=== PATIENT | female | born 1940 | race Caucasian/White ===

== ENCOUNTER 2024-04-16 12:52 | Outpatient (REF) | payer MEDICARE, SELFPAY ==
--- NOTE | 2024-04-16 12:58 | EEG_ITS ---
FINDINGS: Waking background activity consists of a moderate voltage 7 Hz diffuse theta intermixed with muscle artifacts anteriorly. Photic stimulation is without activation. Hyperventilation was omitted. IMPRESSION: This is an abnormal EEG due to mild diffuse background slowing consistent with a diffuse encephalopathic process. No paroxysmal features are identified. MD SIN Garsia/ANNABELLE / [id number]
== END 2024-04-16 12:53 | disposition home or self-care (01) ==
LOC: HO.NEURO 12:52
PROVIDERS: PCP Internal Medicine; Visit Provider Psychiatry & Neurology Neurology
DX: R42 Dizziness and giddiness (principal)
CPT/HCPCS: 95816

== ENCOUNTER 2024-08-18 14:23 | Outpatient (REF) | payer MEDICARE, SELFPAY ==
--- NOTE | ~2024-08-18 | XR_ITS ---
EXAMINATION: XR KNEE, LEFT CLINICAL INFORMATION: M25.562 ACUTE LEFT KNEE PAIN. COMPARISON: None available. TECHNIQUE: Three views of the left knee. FINDINGS: Normal bony mineralization. No definite fracture, dislocation, or suspicious bone lesion. Normal alignment. Moderate medial compartment, and mild lateral compartment joint space narrowing with marginal small osteophytes. Mild spurring of the tibial spines. Mild narrowing of the patellofemoral joint with small marginal osteophytic spurs. There appears to be a suprapatellar joint effusion, moderate in size. Soft tissues otherwise demonstrate mild vascular calcification. XR/XR knee LT 3V IMPRESSION: 1. No acute bony abnormalities. 2. Joint effusion present. 3. 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 Electronically signed by: Chang Quinteros MD 10/27/2024 10:01 AM [facility]
== END 2024-08-18 14:24 | disposition home or self-care (01) ==
LOC: HO.HMGCX 14:23
PROVIDERS: PCP Internal Medicine; Visit Provider Internal Medicine
DX: M25.562 Pain in left knee (principal)
CPT/HCPCS: 73562

== ENCOUNTER → 2024-08-18 14:32 | Outpatient (BNV) | payer MEDICARE, SELFPAY | PROVIDERS: PCP Internal Medicine; Visit Provider Radiology Diagnostic Radiology | DX: M17.12 Unilateral primary osteoarthritis, left knee (principal); M25.462 Effusion, left knee | CPT/HCPCS: 73562 ==

== ENCOUNTER 2024-09-30 15:00 | Outpatient (REF) | payer MEDICARE, SELFPAY ==
[2024-09-30 15:22] LABS: MANUAL DIFF FLAG NO
[2024-09-30 15:45] LABS: Basophils Percent Auto 0.6 % (0-2); Eosinophils Absolute Auto 0.1 X10*3/uL (0.0-0.4); Eosinophils Percent Auto 1.8 % (0-4); Hematocrit 38.7 % (37.0-47.0); Hemoglobin 12.1 g/dl (12.0-16.0); Imm Gran Abs Auto 0.02 X10*3/uL (0.00-0.03); Imm Gran Pct Auto 0.3 % (0.0-0.4); Lymphocytes Absolute Auto 2.1 X10*3/uL (1.2-4.9); Lymphocytes Percent Auto 31.7 % (20-40); Mean Corpuscular HGB Conc 31.3 g/dl (31.0-35.0); Mean Corpuscular Hemoglobin 25.9 pg (27.0-33.0); Mean Corpuscular Volume 82.7 fL (80.0-98.0); Mean Platelet Volume 10.1 fL (9.4-12.3); Monocytes Absolute Auto 0.7 X10*3/uL (0.1-1.2); Monocytes Percent Auto 10.2 % (2-11); Neutrophils Absolute Auto 3.7 x10*3/uL (2.0-8.3); Neutrophils Percent Auto 55.4 % (45-73); Platelet Count 303 X10*3/uL (160-400); Red Blood Count 4.68 X10*6/uL (4.20-5.50); White Blood Count 6.7 X10*3/uL (4.8-10.8)
[2024-09-30 16:28] LABS: Anion Gap 11 (12-20); Blood Urea Nitrogen 11 mg/dL (9-16); Calcium 9.6 mg/dL (8.4-10.2); Carbon Dioxide 25 mmol/L (22-29); Chloride 106 mmol/L (96-108); Estimated Glomerular Filt Rate 53; Glucose Random 94 mg/dL (60-115); Sodium 138 mmol/L (135-145)
[2024-09-30 16:44] LABS: Thyroid Stimulating Hormone 2.98 uIU/mL (0.32-4.0)
[2024-09-30 16:47] LABS: Vitamin B12 < 148 pg/mL (200-900)
== END 2024-09-30 15:01 | disposition home or self-care (01) ==
LOC: HO.LAB 15:00
PROVIDERS: Visit Provider Registered Nurse
DX: G31.84 Mild cognitive impairment of uncertain or unknown etiology (principal)
CPT/HCPCS: 36415; 80048; 82607; 84443; 85025

== ENCOUNTER 2025-02-19 08:49 | Outpatient (REF) | payer MEDICARE, SELFPAY ==
--- NOTE | ~2025-02-19 | MR_ITS ---
EXAMINATION: MR BRAIN WITHOUT CONTRAST CLINICAL INFORMATION: Parkinson's disease. COMPARISON: None available. TECHNIQUE: MRI of the brain was obtained using routine sequences without contrast. Examination performed on a Siemens 1.5 Avril high-field scanner. FINDINGS: Examination mildly limited by patient motion artifact, as well as susceptibility artifact from dentures. There is no diffusion restriction. There is no intracranial hemorrhage, acute infarction, mass effect, or edema. Ventricles are dilated mildly out of proportion to sulcal and cisternal prominence, findings most likely representing central volume loss. No definite hydrocephalus. No shift of midline. No abnormal hemosiderin deposition is identified, although the gradient sequences are limited by susceptibility artifact. There are numerous scattered punctate and minimally confluent foci of white matter T2 hyperintensity in the periventricular, subcortical, and hemispheric deep white matter. These are nonspecific but most likely represent mild changes of small vessel ischemia. Midline structures appear normally formed. Partial empty sella noted. Posterior fossa structures appear normal. Cerebellar tonsils are appropriately located. Major flow voids are preserved within the skull base. The globes and orbital contents demonstrate bilateral lens replacements. Paranasal sinuses are clear bilaterally. The mastoids and tympanic cavities are normally aerated. Extracranial soft tissues demonstrate no abnormalities. No suspicious bone marrow changes are evident. Atlantoaxial joint is normal. MR/MR head/brain wo con IMPRESSION: 1. Mildly limited examination as detailed. 2. No evidence of intracranial hemorrhage, acute infarction, mass effect, or edema. 3. Ventricles mildly dilated out of proportion to sulcal and cisternal prominence, findings most likely representing central volume loss. 4. Mild changes of small vessel ischemia. Electronically signed by: Chang Quinteros MD 02/19/2025 03:35 PM EDT
--- NOTE | ~2025-02-19 | XR_ITS ---
EXAMINATION: XR SCREENING FILM FOR MR HISTORY: PRE MRI R/O IMPLANT S/P UNKNOWN SURGERY COMPARISON: There are no prior studies for comparison. FINDINGS: Three views of the orbits are submitted. No radiopaque foreign body is identified. XR/XR pre mri screening IMPRESSION: No radiopaque foreign body is identified. Electronically signed by: Cody Solorzano MD 02/19/2025 10:34 AM EDT
--- OUTSIDE RECORDS SUMMARY | 2025-02-19 09:45 | XMS_ITS ---
Author Name [facility] Organization Unknown History of Medication Use Medication Directions Dispensed Refills Start Date End Date [facility] lisinopril 10 mg tablet TAKE 1 TABLET BY ORAL ROUTE EVERY DAY active Problems Problem Status Onset Date Problem Type Date of Resoluti on Source Arthritis of left knee active 2023-06-20 ProblemAct ENS_AONECT Encounters Encounter Type Encounter Reason Primary Diagnosis Location Date Ambulatory [facility] 09/11/2023 Ambulatory [facility] 08/07/2023 Ambulatory [facility] 07/03/2023 Ambulatory [facility] 07/03/2023 Ambulatory [facility] 06/20/2023 Ambulatory [facility] 06/20/2023 Ambulatory [facility] 06/20/2023 Ambulatory [facility] 06/19/2023 Ambulatory [facility] 06/06/2023 Ambulatory [facility] 06/06/2023 Ambulatory [facility] 05/18/2023
--- OUTSIDE RECORDS SUMMARY | 2025-02-19 09:45 | XMS_ITS | Encounter Summary ---
Author Organization [facility] Address [id number] [place] [phone] Care Team Providers Care Shirt Folder Name Role Phone Les Mariee MD Primary Care Provider [phone] Reason for Visit * Reason Onset Date Comments Forms/questionnaires 01/16/2025 For MRI Encounter Details Date Type Department Care Team (Late st Contact Info) Description 01/16/2025 Telephone [facility] [address] [facility] [address] [place] [id number] Jf Gonzales MD [address] [place] [address] Forms/questionnaires (For MRI ) Social History Tobacco Use Types Packs/Day Years Used Date Smoking Tobacco: Never Smokeless Tobacco: Never Alcohol Use Standard Drinks/Week Comments Never 0 (1 standard drink = 0.6 oz pur e alcohol) Comments Unknown Sex and Gender Information Value Date Recorded Sex Assigned at Not on file Legal Sex Female 9:36 PM EST Gender Identity Not on file Sexual Orientation Not on file documented as of this encounter Progress Notes * Miryam Redman MA - 01/30/2025 9:53 AM EST Thank you so much. noted * Tereza Dudley MA - 01/30/2025 7:22 AM EST All set. Faxed to [facility] MRI and confirmation received. * Miryam Redman MA - 01/20/2025 11:03 AM EST Called and let Elizabet know that Dr. Gonzales has the form and it will be filled out and sent once hecompletes it and gives it to me. Said she will let the patient son know as he is calling to schedule her MRI. * Jessy Baca - 01/20/2025 10:37 AM EST Elizabet called back, she would like to se if this has paul completed. If so please fax to [phone], she can be reached at [phone]. * Miryam Redman MA - 01/16/2025 2:45 PM EST Called confirmed fax was not received and to refax, which Elizabet did and the form was given to Dr. Gonzales. * Jessy Baca - 01/16/2025 2:11 PM EST Elizabet from [facility] called. They are in the process of scheduling the patient for anMRI and they faxed over a form to be completed by cardiology. She sent it to fax# [phone]. Shewould like to confirm that it was received. Please call her back at [phone]. documented in this encounter Plan of Treatment Upcoming Encounters Date Type Department Care Team (Late st Contact Info) Description 03/16/2025 11:00 AM EDT Ancillary Procedure [facility] [address] [place] [address] documented as of this encounter Visit Diagnoses Not on filedocumented in this encounter Care Teams Shirt Folder Relationship Specialty Start Date End Date Les Mariee MD PCP - General 07/02/18 documented as of this encounter
--- OUTSIDE RECORDS SUMMARY | 2025-02-19 09:45 | XMS_ITS | Clinical Summary ---
Author Organization [facility] Address [address] [place] [address] Phone Care Team Providers Care Netting Weaver Name Role Phone Lola Ma MD Primary Care Provider [phone] Allergies Active Allergy Reactions Criticality Noted Date Comments Iodinated Contrast Media 05/05/2022 Yellow Dye 03/09/2021 Medications diphenhydrAMINE (BENADRYL) 25 mg tablet Take 1 tablet (25 mg total) by mouth every 8 (eight) hours if needed. Active lisinopriL (PRINIVIL,ZESTRI L) 10 mg tablet Take 10 mg by mouth daily. Active pravastatin (PRAVACHOL) 40 mg tablet Take 40 mg by mouth daily. Active Active Problems Problem Noted Date Diagnosed Date Memory loss 06/24/2024 Abnormal electrocardiogram 05/11/2023 Atypical chest pain 05/05/2022 Essential hypertension 03/09/2021 Presence of permanent cardiac pacemaker 03/09/20 Sick sinus syndrome 03/09/2021 Encounters Date Type Department Care Team Description 01/16/2025 Telephone [facility] [address] [facility] [address] [place] [phone] Jf Gonzales MD Forms/questionnaires (For MRI ) 01/09/2025 Telephone [facility] [address] [facility] [address] [place] [address] Lola Ma MD Medical Records 01/09/2025 [address] [facility] [address] [place] [phone] Lola Ma MD Medical Records 01/07/2025 Telephone [facility] [address] [facility] [address] [place] [address] Vicente Higginbotham RN 12/16/2024 9:25 PM EST Ancillary Procedure [facility] [address] [facility] [address] [place] [address] from Last 3 Months Social History Tobacco Use Types Packs/Day Years Used Date Smoking Tobacco: Never Smokeless Tobacco: Never Alcohol Use Standard Drinks/Week Comments Never 0 (1 standard drink = 0.6 oz pur e alcohol) Comments Unknown Sex and Gender Information Value Date Recorded Sex Assigned at Not on file Legal Sex Female 9:36 PM EST Gender Identity Not on file Sexual Orientation Not on file Obstetrics History Last Filed Vital Signs Vital Sign Reading Time Taken Comments Blood Pressure 140/60 06/24/2024 11:09 AM EDT Si tting L Arm Pulse 79 06/24/2024 11:09 AM EDT Temperature - - Respiratory Rate - - Oxygen Saturation - - Inhaled Oxygen Concentration - - Weight 62.1 kg (137 lb) 06/24/2024 11:09 AM EDT Height 162.6 cm (5' 4 ) 06/24/2024 11:09 AM EDT Body Mass Index 23.52 06/24/2024 11:09 AM EDT Plan of Treatment Upcoming Encounters Date Type Department Care Team (Late st Contact Info) Description 03/16/2025 11:00 AM EDT Ancillary Procedure [facility] [address] [facility] [address] [place] [address] Health Maintenance Due Date Last Done Comments DTaP,Tdap,and Td Vaccines (1 - Tdap) 02/25/1960 Zoster Vaccines (1 of 2) 1991 RSV Immunization Patients 60 + Years Old (1 - 1-dose 75+ series) 02/25/2016 Pneumococcal Vaccine: 50+ Years (2 of 2 - PPSV23) 10/19/2021 10/19/2020 Cholesterol Screening (Lipid Panel) 11/04/2022 Depression Screening 11/04/2022 Falls Risk Assessment 11/04/2022 Medicare Annual Wellness Visit 11/04/2022 Social Influencers of Health Screening 11/04/2022 Hypertension/CHF/CAD Annual BMP Blood Test 11/05/2022 COVID-19 Vaccine (2023-2 5 season) 2024 09/12/2021, 01/24/2021, 01/03/2021 Osteoporosis Screening (Bone Density Screening) 07/25/2029 07/25/2019 Influenza Vaccine Completed 11/03/2024, 08/25/2023 HIB Vaccines Aged Out No longer eligi ble based on patient's age to complete this topic HPV Vaccines Aged Out No longer eligi ble based on patient's age to complete this topic Hepatitis A Vaccines Aged Out No long er eligible based on patient's age to complete this topic Hepatitis B Vaccines Aged Out No long er eligible based on patient's age to complete this topic IPV Vaccines Aged Out No longer eligi ble based on patient's age to complete this topic MMR Vaccines Aged Out No longer eligi ble based on patient's age to complete this topic Meningococcal ACWY Vaccine Aged Out N o longer eligible based on patient's age to complete this topic Meningococcal B Vacine Aged Out No lo nger eligible based on patient's age to complete this topic RSV Immunization Patients Under 20 months Aged Out No longer eligible b ased on patient's age to complete this topic Varicella Vaccines Aged Out No longer eligible based on patient's age to complete this topic Medical Devices Implanted Type Area Hardware Engineer Device Identifier Shelf Expiration Date Model / Serial / Lot Nathalia Edora 8 Mandy [id number] Implanted:06/2019 (Quantity not on file) Cardiac Pacemaker [employer] EDORA 8 MANDY / [id number] / Procedures Procedure Name Priority Date/Time Associated Diagnosis Comments CARDIAC DEVICE CHECK- REMOTE- MURJ Routine 12/16/2024 9:22 PM EST RM DEXA AXIAL SKELETON Routine 07/25/2019 11:54 AM EDT Asymptomatic menopausal state from Last 3 Months or Most Recently Relevant to Health Maintenance Results * Cardiac device check - Remote- MURJ (12/16/2024 9:22 PM EST) Date Time Interrogation Session [id number] CV DEVICE CHECK Type Interrogation Session RemoteScheduled CV DEVICE CHECK Implantable Pulse Generator Hardware Engineer BIO CV DEVICE CHECK Implantable Pulse Generator Type IPG CV DEVICE CHECK Implantable Pulse Generator Model Edora 8 DR-T CV DEVICE CHECK Implantable Pulse Generator Serial Number [id number] CV DEVICE CHECK Implantable Pulse Generator Implant Date 20190131 CV DEVICE CHECK Battery Remaining Percentage 55.00 CV DEVICE CHECK Battery Status Middle of Service CV DEVICE CHECK Ivan Statistic RA Percent Paced 99.00 CV DEVICE CHECK Ivan Statistic RV Percent Paced 0.00 CV DEVICE CHECK Atrial Tachy Statistic AT/AF Sharon Percent 0.00 CV DEVICE CHECK Lead Channel Sensing Intrinsic Amplitude 1.000 CV DEVICE CHECK Lead Channel Impedance Value 546 CV DEVICE CHECK Lead Channel RA Pacing Threshold Date 2024-12-12 CV DEVICE CHECK Lead Channel Setting Pacing Amplitude 1.400 CV DEVICE CHECK Lead Channel Setting Pacing Pulse Width 0.4 CV DEVICE CHECK Lead Channel Sensing Intrinsic Amplitude 10.100 CV DEVICE CHECK Lead Channel Impedance Value 585 CV DEVICE CHECK Lead Channel Pacing Threshold Amplitude 0.800 CV DEVICE CHECK Lead Channel Pacing Threshold Pulse Width 0.4 CV DEVICE CHECK Lead Channel RV Pacing Threshold Date 2024-12-12 CV DEVICE CHECK Lead Channel Setting Pacing Amplitude 1.300 CV DEVICE CHECK Lead Channel Setting Pacing Pulse Width 0.4 CV DEVICE CHECK Ivan Setting Mode (NBG Code) DDD-CLS CV DEVICE CHECK Ivan Setting Lower Rate Limit 60 CV DEVICE CHECK Ivan Setting AT Mode Switch Rate 160 CV DEVICE CHECK Ivan Setting Maximum Tracking Rate 130 CV DEVICE CHECK Ivan Setting Maximum Sensor Rate 120 CV DEVICE CHECK Ivan Setting PAV Delay 120 CV DEVICE CHECK Ivan Setting JOHNNIE Delay 100 CV DEVICE CHECK Date of Service 2024-12-22 CV DEVICE CHECK Anatomical Region Laterality Modality Device Interroga tion 12/11/2024 10:3 8 PM EST Impressions 12/16/2024 8:06 AM EST Normal Remote: No Events * Normal Device Function * Alerts or events: None * Battery: Battery is at 55%, * Sensing, impedance and thresholds reviewed * Programmed parameters reviewed * Presenting rhythm reviewed * Heart Rate Histograms reviewed * No significant changes noted Narrative Procedure Note Eleno Cordova MD - 12/16/2024 IMPRESSION: Normal Remote: No Events * Normal Device Function * Alerts or events: None * Battery: Battery is at 55%, * Sensing, impedance and thresholds reviewed * Programmed parameters reviewed * Presenting rhythm reviewed * Heart Rate Histograms reviewed * No significant changes noted us Eleno Cordova MD CV IMPLANTABLE CARDIAC DEV ICE PROCEDURES Final Result * [facility] DEXA AXIAL SKELETON (07/25/2019 11:54 AM EDT) Anatomical Region Laterality Modality Mammography 07/25/2019 10:1 1 AM EDT Narrative 07/25/2019 11:[address] [facility] Diagnostic Imaging Department [address] [place], [place] [id number] Patient: ??SHERIE GONZALEZ ?/Age/Sex: 1940 - F Unit#: ??[id number] ? Location/Status: ??SPDIMAM/REG CLI ? Mnemonic/Ordering Site: ??MAMDEXAAX/SPMAM Ordering Physician: ??LOLA MA MD [facility] Dexa Axial Skeleton - 07/25/191137 HISTORY: ??The patient is a 79-year-old postmenopausal female with clinical concern for metabolic bone disease. FINDINGS: ??Dual energy x-ray absorptiometry of the lumbar spine and femurs is performed. The mean bone mineral density at L1-L4 is 1.377 gm/cm2 which is 117% of that of young normals and 144% of that of age matched controls. This yields a T-score of 1.6 and a Z-score of 3.5 and there is therefore no evidence of osteoporosis or osteopenia here. The mean bone mineral density of the femurs bilaterally is 1.044 gm/cm2 which is 104% of that of young normals and 137% of that of age matched controls. ??This yields a T-score of 0.3 and a Z-score of 2.2 and there is therefore no evidence of osteoporosis or osteopenia here. IMPRESSION: 1. There is no evidence of osteoporosis or osteopenia. 2. FRAX analysis yields a 10-year probability of major osteoporotic fracture of 11.3% and a 10-year probability of hip fracture of 2.1%. Code 65765 Dictating Physician: ??PARTHA LOGAN MD Electronically Signed by: ??PARTHA LOGAN MD Dic Date/Time: ??07/25/19 1152 Sign date/Time: ??07/25/19 1154 Procedure Note Partha Logan - 11/15/2022 [facility] Diagnostic Imaging Department [address] [place] [address] Patient: JENNY GONZALEZRICIA George Beckham/Age/Sex: 1940 - 79 - F Unit#: [id number] Location/Status: [facility] Ordering Physician: LOLA MA MD Rm Dexa Axial Skeleton - 07/25/19 1130 HISTORY: The patient is a 79-year-old postmenopausal female withclinical concern for metabolic bone disease. FINDINGS: Dual energy x-ray absorptiometry of the lumbar spine and femursis performed. The mean bone mineral density at L1-L4 is 1.377 gm/cm2 which is117% of that of young normals and 144% of that of age matched controls. Thisyields a T-score of 1.6 and a Z-score of 3.5 and there is therefore no evidenceof osteoporosis or osteopenia here. The mean bone mineral density of the femurs bilaterally is 1.044 gm/lf7yjkub is 104% of that of young normals and 137% of that of age matched controls.This yields a T-score of 0.3 and a Z-score of 2.2 and there is therefore noevidence of osteoporosis or osteopenia here. IMPRESSION: 1. There is no evidence of osteoporosis or osteopenia. 2. FRAX analysis yields a 10-year probability of major osteoporoticfracture of 11.3% and a 10-year probability of hip fracture of 2.1%. Code 03025 Dictating Physician: PARTHA LOGAN MD Electronically Signed by: PARTHA LOGAN MD Dic Date/Time: 07/25/19 1152 Sign date/Time: 07/25/19 1154 Lola Ma MD IMG BI PROCEDURES Final Result from Last 3 Months or Most Recently Relevant to Health Maintenance Insurance [employer] Care Teams Netting Weaver Relationship Specialty Start Date End Date Lola Ma MD PCP - General 8/7/18
--- OUTSIDE RECORDS SUMMARY | 2025-02-19 09:45 | XMS_ITS | Data Portability ---
Author Organization [place] [facility] Jayde Murcia [place]ONE [place] Address [address] [facility] [address] [place] [address] Care Team Providers Care Dedenter Name Role Phone LOLA MA Referring Provider [phone] Assessment Encounter Date Assessment Date Assessment LastModified by Organization Details LastModified Time 06/20/2023 06/20/2023 Pleasant 83-year-old female however presents is a poor historian. With left knee pain currently she would like to hold off on intervention. She certainly can take uzlz-kyd-nsdivge pain medication for symptomatic relief or topicals. She is not interested in injections at this point. She states she will call if her symptoms worsen or if she changes her mind. I did review her radiographs in detail. Female grounding engineer present Agnes Davilaes (PAIGE). Indirect care and treatment in conjunction with Dr. De Los Santos Additional treatment plan discussed with the patient in detail included the following; - Provider focused nonsteroidal anti-inflammator y regimen (discussed were the pros, cons, benefits and risks as well as any black box warnings) in patients over 60 years old they should be very cautious in taking these medications due to potential decreased kidney function and or elevated blood pressure. - Analgesic pain medication for pain suppression (discussed were the pros, cons, benefits and risks as well as any black box warnings) - The use of topical pain relieving medication were discussed - The use of ice to decrease inflammation and pain - The use of assistive ambulatory devices for ambulation and fall prevention - Formal specific guided physical therapy program I reviewed my findings at length with the patient today. ? ? ?We discussed the nature and etiology of this problem along with current treatment options. We discussed the expected course and outcomes and what to expect. We also discussed risks and benefits. ? ? ? All of their questions were answered today, and there was exhibited understanding and comprehension of all that was discussed. Time Spent: 10 minutes were spent reviewing previous imaging and charting. ? ? ?10 minutes were spent obtaining patient history. ? ? ?5 minutes were spent on physical exam. ? ? ?5? ? ?minutes were spent explaining diagnosis and assessment. Today's documentation was made using voice recognition software. This note may contain grammatical errors secondary to the software. [email or web address] Not available 06/20/2023 10:44:18 Plan of Treatment Reminders Order Date Submit Date Provider Last Modified By Organization Details Last Modified Time Details Appointments None record ed. Lab None record ed. Referral None record ed. Procedures None record ed. Surgeries None record ed. Imaging None record ed. Medication Orders None record ed. Patient TargetsNo targets recorded. Patient InstructionsNo instructions recorded. Reason for Referral None Reported. Problems Name Problem SNOMED Code Status Onset Date Resolution Date Notes Provider Name and Address Organization Details Recorded Time Arthritis of left knee [id number] 04 Active 2022 TRAVIS RIGGS PA-C [address] [facility],[address], [place], [address] [facility] 10:44:23 Problem Notes None recorded. Procedures Surgical History Date Name Laterality Status Provider Name and Address Organization Details Recorded Time Pacemaker/D efibrillato r completed [facility] [place] [facility] 06/20/2023 12:15:30 Imaging Results None recorded. Procedure Notes None recorded. Medical Equipment None Reported. Allergies Allergen ID Allergen Name Allergen Category Reaction Reaction Severity Criticality Documentation Date Start Date Code Code System Note Provider Name and Address Organization Details Recorded Time 6537 yellow dye medicatio n Not available Not available Not available 06/20/2023 UNK Agnes [facility], [place] [facility] 12:08:31 Medications Name Sig Start Date Stop Date Status Note LastModified by Organization Details LastModified Time oxybutynin chloride ER 10 mg tablet,extend ed release 24 hr TAKE 1 TABLET BY MOUTH EVERY DAY 06/20 completed Not Available Not Available Not Available pravastatin 40 mg tablet TAKE 1 TABLET BY MOUTH EVERY DAY active Not Available Not Available No t Available lisinopril 10 mg tablet TAKE 1 TABLET BY ORAL ROUTE EVERY DAY active Not Available Not Available No t Available Vitals Date Recorded Body height Body mass index (BMI) Body weight Provider Name and Address Organization Details Last Updated DateTime 06/20/2023 162.56 cm 23.2 kg/m2 44292.[address] [place] [facility] 06/20/2023 12:08:54 Social History Question Answer Notes LastModified by Organizat ion Details LastModified Time Tobacco Smoking Status Never Smoker Agnes Emery null, [place] [facility] 06/20/2023 12:15:16 What Is Your Level Of Alcohol Consumption? None Information not available 06/20/2023 Do You Use Any Illicit Or Recreational Drugs? No [email or web address] Information not available 06/20/2023 Do You Or Have You Ever Used Any Other Forms Of Tobacco Or Nicotine? No Information not available 06/20/2023 Sex: Unknown Functional Status None recorded. Mental Status None recorded. Family History Relationship Description Onset Age of this Age Resolved Age Notes LastModified by Organization Details LastModified Time Father Family history of malignant neoplasm [email or web address] Not available 2022 12:15:01 Medical History Condition Response Heart Disease Y Hypertension Y Gynecological HistoryNo gynecological history recorded. Obstetrics History GPAL:G 0 P 0 0 0 0 Past Encounters Encounter ID Performer Location Encounter Start Date Encounter Closed Date Diagnosis/Indication Diagnosis SNOMED-CT Code Diagnosis ICD10 Code Diagnosis Note [id number] Robin De Los Santos MD [facility] [address] [address] 06/20/2023 10:06:35 06/20/2023 10:54:27 Arthritis of left knee [id number] M13.862 Health Concerns Section Related Observation LastModified by Organization Detai ls LastModified Time None Recorded Concern Status LastModified by Organization Details LastModified Time None Recorded Advance Directives Directive None Recorded Payers Encounter Date Sequence Insurance Name Policy Number Policy Wahl Covered Member ID Wahl Member ID Guarantor Name 06/20/2023 1 [facility] - MEDICARE PREFERRED (MEDICARE REPLACEMENT HMO) NYDIA Gonzalez [id number] Noemi Gonzalez Notes Date Note Type Note Provider Name and Address Organization Details Recorded Time 3 text/html Very pleasant 83-year-old female referred by her primary care Dr. Ma for ongoing left knee pain she describes this pain is intermittent in nature. She states she does not take xqba-azx-mgxjqdm pain medication. She does a lot of gardening which she is most symptomatic she describes her pain is medial in nature denies instability symptoms denies any injury or previous surgery here for evaluation. She had x-rays performed at [facility] which show degenerative joint disease of the left knee. She also had an ultrasound which did not reveal any blood clot [facility] [address] [place], [place] [id number] Patient: NOEMI GONZALEZ George Stephens./Age/Sex: 1940 83 - FUnit#: [id number] Location/Status: [facility] CLIAccount#: [id number] Mnemonic/[facility] Physician: LOLA MA MD CR Knee LT 4 or more View - 03/27/23 - 0680Exam: Left knee radiographs.Indication: Pain.Comparison: None.Protocol: AP, lateral, and oblique views.Findings:No fracture, dislocation, or intraosseous lesion. No effusion. Mild tomoderate medial and moderate patellofemoral joint space narrowing withoutcyst or spur formation nor subchondral sclerosis. Lateral knee joint spaceis normal. Surrounding soft tissues are normal. Bone mineralizationpattern is normal.Impression:1. No acute fracture.2. Medial and patellofemoral joint osteoarthritis.Dictating Physician: GERA MONTANA MDElectronically Signed by: GERA MONTANA Date/Time: 03/29/23902Sign date/Time: 03/29/23 09 [facility] [address] [place] [address] Patient: NOEMI GONZALEZ George /Age/Sex: 1940 - 83 - FUnit#: [id number] Location/Status: [facility]/REG CLIAccount#: [id number] Mnemonic/Ordering Site: [facility]PVENLT/SPUSOrdering Physician: LOLA MA MD US Duplex Venous Study LT - 03/27/23 - 1515History: Left lower extremity pain and swelling.Findings:Duplex and color Doppler imaging of the left lower extremity was performedfrom the inguinal ligament to the popliteal fossa. The common femoral,femoral and popliteal veins are patent and compress completely. Normalspontaneous and phasic venous flow is demonstrated with Doppler. There isnormal flow augmentation with calf compression.The deep calf veins, as visualized, are compressibleImpression: No evidence of deep vein thrombosis in the left femoral-popliteal venous segment.[id number] Physician: MARY JO KINGSTON MDElectronically Signed by: MARY JO KINGSTON MDDic Date/Time: 03/27/23 1527Sign date/Time: 03/27/23 1528 TRAVIS RIGGS PA-C [address] [place] [address], [address], [place] [facility] 06/20/2023 10:44:38 OBGyn Episode No OBEpisode recorded.
--- OUTSIDE RECORDS SUMMARY | 2025-02-19 09:45 | XMS_ITS | Encounter Summary ---
Author Organization [facility] Address [address] [place] [address] Care Team Providers Care Director Social Welfare Name Role Phone Les Mariee MD Primary Care Provider [phone] Reason for Visit * Reason Onset Date Comments Medical Records 01/09/2025 Encounter Details Date Type Department Care Team (Late st Contact Info) Description 01/09/2025 Telephone [facility] Cardiology [facility] [address] [place] [address] Les Mariee MD [address] [place] [address] Medical Records Social History Tobacco Use Types Packs/Day Years [...] as of this encounter Progress Notes * Samantha Thornton - 01/27/2025 3:47 PM EST Faxed 02/2024 Device Check to [facility] Att: Marga at [phone] on 01/09/2025 documented in this encounter Plan of Treatment Upcoming Encounters Date Type Department Care Team (Late st Contact Info) Description 03/16/2025 11:00 AM EDT Ancillary Procedure [facility] Cardiology [facility] [address] [facility] [address] [place] [address] documented as of this encounter Visit Diagnoses Not on filedocumented in this encounter Care Teams Director Social Welfare Relationship Specialty Start Date End Date Les Mariee MD PCP - General 07/02/18 documented as of this encounter
== END 2025-02-19 08:50 | disposition home or self-care (01) ==
LOC: HO.MRI 08:49
PROVIDERS: PCP Internal Medicine; Visit Provider Registered Nurse
DX: G20.A1 Parkinson's disease without dyskinesia, without mention of fluctuations (principal)
CPT/HCPCS: 70551

== ENCOUNTER → 2025-02-19 10:33 | Outpatient (BNV) | payer MEDICARE, SELFPAY | PROVIDERS: PCP Internal Medicine; Visit Provider Radiology Diagnostic Radiology | DX: G20.A1 Parkinson's disease without dyskinesia, without mention of fluctuations (principal) | CPT/HCPCS: 70551 ==

== ENCOUNTER 2025-11-10 11:51 | Outpatient (AMB) | payer MEDICARE, SELFPAY ==
--- OUTSIDE RECORDS SUMMARY | 2025-05-12 08:00 | XMS_ITS ---
Author Organization [facility] Address [address] [place] [address] Care Team Providers Care Rn Testing Name Role Phone LOLA MA Primary Care Provider [phone] REASON FOR VISIT 41/ 3mo Encounters Encounter Location Date Provider Diagnosis [address] [address] 05/12/2025 LOLA MA Plan Of Treatment Next Appt Details Provider Name:LOLA MA , 12/15/2025 01:00:00 PM, [address] [place], [address], Progress Notes * SHERIE GONZALEZDOB: (85 yo F)Acc No.[id number]:05/12/2025 Progress Notes Patient: SHERIE DOUGLAS Provider: Florinda MA M.D. :1940 A ge:85 Y S ex:Female Date:05/12/2025 Address:[address] [id number] Subjective: * Chief Complaints: * 4 1/ 3mo * Electronic signature of LOLA MA MD on 11/10/2025 at 03:42 PM EST Sign off status: Pending * Provider: Florinda MA M.D. Date: 0 05/12/2025 Generated for Printi ng/Faxing/eTransmitting on: 1 01/11/2025 03:42 PM EST
--- NOTE | 2025-11-10 11:53 | MHC.OFFVIS ---
Intake Visit Reasons: 6m pd Accompanied by: Son Allergies No Known Allergies Allergy (Verified 11/10/25 12:00) Medication List - Last Reconciled 11/10/25 by Yuliana Bahena CNP carbidopa-levodopa 25-100 mg (Sinemet) 1 tab PO TID 90 days cyanocobalamin (vitamin B-12) 1,000 mcg PO DAILY 90 days donepezil 10 mg PO DAILY furosemide 20 mg PO DAILY pravastatin 40 mg PO DAILY HPI Comments Details: 85-year-old woman with hyperlipidemia, MCI, and Parkinson's. She was doing okay. She was taking carbidopa-levodopa three times a day, no medication side effects. No significant tremor. No difficulty eating, drinking, or swallowing. She was complaining of some dizziness, especially if she stood up too fast. She was walking with cane, no falls. No difficulty turning in bed or standing from chair. She felt her memory was getting worse and was more forgetful. Family helped to manage medications and she had alarms set to reminder her when to take medications. She was taking medications regularly. Sleep was not so good as she was waking during the night to use the bathroom. [facility] Medical History (Updated 11/10/25 @ 11:59 by Yuliana Bahena CNP) Hyperlipidemia MCI (mild cognitive impairment) Parkinson disease Review of Systems Const Denies chills, Denies daytime sleepiness, Reports difficulty sleeping, Denies fatigue, Denies fever(s), Denies frequent falls, Denies headache(s), Denies increased appetite, Denies poor appetite, Denies snoring, Denies weakness, Denies weight gain and Denies weight loss Eyes Denies loss of vision ENT Denies vertigo, Reports dizziness, Denies headache(s) and Denies neck pain Card Denies chest pain at rest, Denies chest pain with activity, Denies syncope, Denies leg edema, Denies palpitations, Denies dyspnea and Denies dyspnea on exertion Resp Denies cough, Denies dyspnea, Denies dyspnea on exertion and Denies snoring GI Denies abdominal pain, Denies constipation, Denies heartburn, Denies diarrhea and Denies nausea Denies urinary frequency, Denies urinary incontinence and Denies urinary urgency Musc Denies abnormal gait, Denies back pain, Denies myalgias, Denies arthralgias, Denies neck pain, Denies numbness and Denies tingling Neuro Denies abnormal gait, Denies vertigo, Reports dizziness, Denies syncope, Denies frequent falls, Denies headache(s), Denies lack of coordination, Denies loss of vision, Reports memory loss, Denies numbness, Denies Other visual disturbances, Denies restless legs, Denies seizure-like activity, Denies tingling, Denies paresthesias, Denies tremor(s) and Denies weakness Psych Denies anxiety, Denies depression, Denies auditory hallucinations, Reports memory loss and Denies visual hallucinations Endo Denies fatigue and Denies palpitations Physical Exam Const Other: General Appearance:? normal, in no acute distress. Heart:? S1, S2 normal, no murmurs. Lungs:? clear anteriorly and posteriorly. Musculoskeletal:? normal. Extremities:? no edema. Psych:? alert, as below. Neuro Other: Abnormal Neurological Findings:?Decreased facial expressions and blinking frequency. Decreased arm swing, stooped posture with cane. Intermittent resting tremor. Mild cogwheeling rigidity of BUE. +propulsion and retropulsion. Bradykinesia. Mental Status: alert, as below. Cranial Nerves: Pupils are equal, round, and reactive to light. External ocular muscles are intact. Visual ramires are full, no ptosis. Face is symmetrical, no facial weakness or droop. Facial sensations are normal. Tongue protrudes in midline. Palate elevates symmetrically. Shoulder shrugging is normal Motor Examination: Normal muscle tone, bulk and strength. No atrophy or fasciculations. No drift of the extended upper extremities. DTR 2+. Plantars are flexor. Sensory Exam: Normal light touch, temperature, pinprick, vibration, and joint-position sensations. Rhomberg sign is absent. Coordination: No ataxia. No titubation. Gait Exam: As above. Cerebellar Signs: Fpixtx-ox-xzzg is okay. Extrapyramidal System: As above. Speech: Normal. MMSE Level of Consciousness: Alert. Orientation: Knows correct day and season. Does not know year, month, and date. Knows correct city, county and state. Knows correct location and floor. Registration: Able to register 3 objects. Attention: Serial 7's performed accurately to 93. Recall: Able to recall 1 out of 3 objects. Language: Normal spontaneous speech, fluency, repetition, naming, comprehension, reading, and writing. Total Score: 21/30. Results Reviewed Results Reviewed: MRI brain 01/2025: 1. Mildly limited examination as detailed. 2. No evidence of intracranial hemorrhage, acute infarction, masseffect, or edema. 3. Ventricles mildly dilated out of proportion to sulcal and cisternalprominence, findings most likely representing central volume loss. 4. Mild changes of small vessel ischemia. CT brain 02/29/24: age related atrophy EEG 04/16/24: Mild, diffuse background slowing Labs 09/2024: low vit b12 Assessment & Plan Assessment & Plan (1) Parkinson disease: Code(s): G20.A1 - Parkinson's disease without dyskinesia, without mention of fluctuations Category: Medical Qualifiers: Dyskinesia presence: unspecified whether dyskinesia Fluctuating manifestations: unspecified whether manifestations fluctuate Qualified Code(s): G20.A1 - Parkinson's disease without dyskinesia, without mention of fluctuations Plan: Continue carbidopa-levodopa 25-100mg 1 tablet three times a day. (2) MCI (mild cognitive impairment): Code(s): G31.84 - Mild cognitive impairment of uncertain or unknown etiology Category: Medical Plan: Continue donepezil 10mg 1 tablet at bedtime. Continue vitamin B12 daily. Start memantine 5mg 1 tablet twice a day, use/side effects reviewed. Follow up in 3 months or sooner as needed. (3) Dizziness: Code(s): R42 - Dizziness and giddiness Category: Medical Plan: Stay hydrated, change positions slowly. Medications: New memantine (Namenda) 5 mg PO BID 60 tabs 2RF 30 days Coding Level of Care Code Est Pt Level 4 (10340) Diagnoses Parkinson's disease, unspecified whether dyskinesia present, unspecified whether manifestations fluctuate G20.A1 Dyskinesia presence: unspecified whether dyskinesia Fluctuating manifestations: unspecified whether manifestations fluctuate MCI (mild cognitive impairment) G31.84 Dizziness R42
--- OUTSIDE RECORDS SUMMARY | 2025-11-10 15:43 | XMS_ITS | Patient Health Record ---
Author Organization [facility] Address [address] [place] [address] Care Team Providers Care Superintendent Colliery Name Role Phone Les Mariee MD Primary Care Provider Unavailab Cody Perales Unavailable [phone] Allergies Allergen (clinical drug ingredient) Drug/Non Drug Allergy documented on EMR Reaction Allergy Type Onset Date Status IVP dye (uncoded) Unknown Allergy Ac tive Reason For Referral No Information Medications Medication SIG (Take, Route, Frequency, Duration) Notes Start Date End Date Status Lisinopril-hydroCHLOROthi azide Active Omeprazole 20 MG Capsule Delayed Release 1 capsule Orally Once a day; Duration: 30 day(s) 2014 Active Social History Social History Additional Details Category Social Info Options Details Miscellaneous: Marital status: New since last visit: retired Section Notes: Nonsmoker; no alcohol Problems Problem Type SNOMED Code ICD Code Onset Dates Problem Status W/U Status Risk Notes Problem Dysphagia (02344298) Dysphagia (787.20) Active confirmed Problem Gastroesophageal reflux disease (626211768) GERD (gastroesopha geal reflux disease) (530.81) Active confirmed Plan Of Treatment No Information Insurance Providers Payer Name Payer Address Payer Phone Subscriber Number Group Number Insured Name Patient Relationship to Insured Coverage Start Date Coverage End Date MEDICARE OF [employer] [address] [place] [address] [phone] [id number] SHERIE GONZALEZ Self - patient is the insured Medical (General) History Medical History History ICD Code Colonoscopy 03-27-2008--neg except for div erticulosis Asthma-on no meds Denies [place],DM,CVA,renal disease Neg colonoscopy in [address] Tong at [facility] HTN Surgical History Surgery Date(Month/Year) bladder suspension partial hysterectomy
--- OUTSIDE RECORDS SUMMARY | 2025-11-10 15:44 | XMS_ITS | Patient Health Record ---
Author Organization [facility] Address [address] [place] [address] Care Team Providers Care Layout Former Name Role Phone LOLA [place] Primary Care Provider Allergies Allergen (clinical drug ingredient) Drug/Non Drug Allergy documented on EMR Reaction Allergy Type Onset Date Status ioversol Ioversol Nausea Drug Allergy Active Reason For Referral Referral Organization [facility] Referring Provider First Name LOLA Referring Provider Last Name ANIL Referring Provider Speciality Internal M edicine Referred Provider TAMMIE [facility] Referred Provider Specialty Cardiovascul ar Disease Referral Priority Routine Referral Appointment Date 08/12/2025 Medications Medication SIG (Take, Route, Frequency, Duration) Notes Start Date End Date Status Furosemide 20 MG Tablet TAKE 1 TABLET BY MOUTH EVERY DAY FOR 30 DAYS; Duration: 90 Active Carbidopa-Levodopa 25-100 MG Tablet 1 tablet as needed Orally 3 times daily Active Donepezil HCl 5 MG Tablet 1 tablet at be dtime Orally Once a day Active Pravastatin Sodium 40 MG Tablet 1 tablet Orally Once a day; Duration: 90 days Active Immunizations Vaccine Route Administration Date Status Comme nts Influenza, Fluzone HD 65+ IM Intramuscular 08/25/2023 Administered Influenza, Fluzone HD 65+ IM Intramuscular 11/03/2024 Administered Influenza, Fluzone HD 65+ IM Intramuscular 08/13/2025 Administered Pfizer COVID-19,mRNA, LNP-S, PF, 30mcg/0.3mL dose Unknown 01/03/2021 Administered Pfizer COVID-19,mRNA, LNP-S, PF, 30mcg/0.3mL dose Unknown 01/24/2021 Administered Pneumococcal, PPV 23 Unknown 10/19/2020 Administered wyeth exp 11/25/2022 SARSCOV2 VAC BVL 3MCG/0.2ML Pfizer Unknown 09/12/2021 Administered Td (Tetanus Diphtheria) Unknown 08/20/2013 Administered Social History Tobacco Use: Social History Observation Description Date Details (start date - stop date) Never Smoker NA - NA Social History Tobacco Use: Social Info Question Answer Notes Smoking Are you a: never smoker Additional Details Category Social Info Options Details General Occupation: Retired asbestos exposure: no alcohol use: no drug use: no Coffee/Tea/Soda: 1-2 cups of cof fee daily Marital Status experience no Living with Alone Pets 1 dog smokers in household no Problems Problem Type SNOMED Code ICD Code Onset Dates Problem Status W/U Status Risk Notes Problem Unsteady gait (70591593) Unsteady gait (R26.81) Active confirmed Problem Primary insomnia (4664483) Primary insomnia (F51.01) Active confirmed Problem Chronic venous insufficiency (25523462) Chronic venous insufficiency (I87.2) Active confirmed Problem Prediabetes (239921814) Prediabetes (R73.03) Active confirmed Problem Degeneration of lumbar intervertebral disc (64204462) Disc degeneration, lumbar (M51.36) Active confirmed Problem Mild neurocognitive disorder (122181756) Mild neurocognitive disorder (G31.84) Active confirmed Problem Parkinson's disease (disorder) (41052390) Parkinson's disease without dyskinesia, with fluctuating manifestations (G20.A2) Active confirmed Problem Essential hypertension (05991624) Essential (primary) hypertension (I10) 11/03/20 10 Active confirmed Problem Mixed hyperlipidemia (881250876) Mixed hyperlipidemia (E78.2) 11/03/20 10 Active confirmed Problem Rosacea (445388320) Rosacea, unspecified (L71.9) 11/03/20 10 Active confirmed Vital Signs Blood pressure diastolic 78 mm Hg 08/13/2025 Height 63.30 in 08/13/2025 Blood pressure systolic 120 mm Hg 08/13/2025 Weight 132 lbs 08/13/2025 BMI 23.16 kg/m2 08/13/2025 Encounters Encounter Location Date Provider Diagnosis [facility] [address] [place] [address] 02/06/2025 [facility] Prediabetes R73.03 ; Dizziness R42 ; Parkinson's disease without dyskinesia, with fluctuating manifestations G20.A2 ; Mild neurocognitive disorder G31.84 and Primary insomnia F51.[id number] [place] [address] 03/11/2025 [facility] Bilateral lower extremity edema R60.[address] [address] 04/10/2025 [facility] Chronic venous insufficiency I87.[address] [address] 04/10/2025 [facility] Medicare annual well ness visit, subsequent Z00.[address] [address] 08/13/2025 [facility] Prediabetes R73.03 ; Parkinson's disease without dyskinesia, with fluctuating manifestations G20.A2 ; Chronic venous insufficiency I87.2 ; Mild neurocognitive disorder G31.84 ; Lightheadedness R42 and Encounter for administration of vaccine Z23 [address] [address] 01/01/[address] [address] 01/07/[address] [address] 02/06/[address] [address] 02/08/2025 [facility] [address] [address] 02/19/[address] [address] 03/10/[address] [address] 03/12/2025 [facility] Lower extremity emily a R60.0 and Elevated d-dimer R79.[address] [address] 03/17/[address] [address] 03/25/2025 [facility] [address] [place] [address] 04/10/2025 [facility] [address] [place] [address] 08/13/2025 [facility] [address] [place] [address] 08/14/2025 [facility] Assessments Encounter Date Diagnosis (ICD Code) Assessment Notes Treatment Notes Treatment Clinical Notes Section Notes 03/11/2025 Bilateral lower extremity edema (ICD-10 - R60.0) 1. Bilateral lower extremity edema: Patient has been gained 10 pounds since she was here last month. Will check D-dimer to look for evidence of blood clot. We will check BNP to look for evidence to suggest congestive heart failure. Will check urine protein to rule out nephrotic syndrome. Will start the patient on Lasix. If testing is negative and not improving readily we may need to rule out a compressive syndrome. This could also be conceivably due to Sinemet which was started in recent weeks for Parkinson's 03/12/2025 Lower extremity edema (ICD-10 - R60.0) 04/10/2025 Chronic venous insufficiency (ICD-10 - I87.2) 1. Chronic venous sufficiency: Improving with diuresis. Will add compression stockings. proBNP was normal and Dopplers of the legs were negative for DVT. Will reassess in 3 months. Will check labs today to rule out dehydration and hypokalemia. 04/10/2025 Medicare annual wellness visit, subsequent (ICD-10 - Z00.00) AWV form reviewed with pt 02/06/2025 Dizziness (ICD-10 - R42) 1. Prediabetes: We will update A1c which has been stable on diet control 2. Dizziness: Gave son number for cardiology to book follow-up and pacemaker check. This could conceivably also be in part related to the recent diagnosis of Parkinson's 3. Parkinson's: Newly on Sinemet. Will send for neurology notes and follow along closely 4. Mild neurocognitive disorder: Will restart Aricept and watch for any impact on dizziness 5. Insomnia: Will trial melatonin 02/06/2025 Prediabetes (ICD-10 - R73.03) 1. Prediabetes: We will update A1c which has been stable on diet control 2. Dizziness: Gave son number for cardiology to book follow-up and pacemaker check. This could conceivably also be in part related to the recent diagnosis of Parkinson's 3. Parkinson's: Newly on Sinemet. Will send for neurology notes and follow along closely 4. Mild neurocognitive disorder: Will restart Aricept and watch for any impact on dizziness 5. Insomnia: Will trial melatonin 08/13/2025 Prediabetes (ICD-10 - R73.03) 1. Prediabetes: A1c was stable at 6.4 when last checked in January. We will recheck today with current nutrition efforts 2. Parkinson's: Question whether neuro adjusted Sinemet. Will send for last consult note as it is not been received. 3. Chronic venous insufficiency: Legs appear stable. Will trial cutting back to using the Lasix every other day to see if she can do with less. She has trouble staying hydrated 4. Mild neurocognitive disorder: Stable on donepezil which she is tolerating well 5. Lightheadedness: Will adjust Lasix and encourage hydration as above. Suspect Parkinson's is also contributing to this issue 6. Flu shot given today 08/13/2025 Parkinson's disease without dyskinesia, with fluctuating manifestations (ICD-10 - G20.A2) 1. Prediabetes: A1c was stable at 6.4 when last checked in January. We will recheck today with current nutrition efforts 2. Parkinson's: Question whether neuro adjusted Sinemet. Will send for last consult note as it is not been received. 3. Chronic venous insufficiency: Legs appear stable. Will trial cutting back to using the Lasix every other day to see if she can do with less. She has trouble staying hydrated 4. Mild neurocognitive disorder: Stable on donepezil which she is tolerating well 5. Lightheadedness: Will adjust Lasix and encourage hydration as above. Suspect Parkinson's is also contributing to this issue 6. Flu shot given today 02/06/2025 Parkinson's disease without dyskinesia, with fluctuating manifestations (ICD-10 - G20.A2) 1. Prediabetes: We will update A1c which has been stable on diet control 2. Dizziness: Gave son number for cardiology to book follow-up and pacemaker check. This could conceivably also be in part related to the recent diagnosis of Parkinson's 3. Parkinson's: Newly on Sinemet. Will send for neurology notes and follow along closely 4. Mild neurocognitive disorder: Will restart Aricept and watch for any impact on dizziness 5. Insomnia: Will trial melatonin 03/12/2025 Elevated d-dimer (ICD-10 - R79.89) 02/06/2025 Mild neurocognitive disorder (ICD-10 - G31.84) 1. Prediabetes: We will update A1c which has been stable on diet control 2. Dizziness: Gave son number for cardiology to book follow-up and pacemaker check. This could conceivably also be in part related to the recent diagnosis of Parkinson's 3. Parkinson's: Newly on Sinemet. Will send for neurology notes and follow along closely 4. Mild neurocognitive disorder: Will restart Aricept and watch for any impact on dizziness 5. Insomnia: Will trial melatonin 08/13/2025 Chronic venous insufficiency (ICD-10 - I87.2) 1. Prediabetes: A1c was stable at 6.4 when last checked in January. We will recheck today with current nutrition efforts 2. Parkinson's: Question whether neuro adjusted Sinemet. Will send for last consult note as it is not been received. 3. Chronic venous insufficiency: Legs appear stable. Will trial cutting back to using the Lasix every other day to see if she can do with less. She has trouble staying hydrated 4. Mild neurocognitive disorder: Stable on donepezil which she is tolerating well 5. Lightheadedness: Will adjust Lasix and encourage hydration as above. Suspect Parkinson's is also contributing to this issue 6. Flu shot given today 08/13/2025 Mild neurocognitive disorder (ICD-10 - G31.84) 1. Prediabetes: A1c was stable at 6.4 when last checked in January. We will recheck today with current nutrition efforts 2. Parkinson's: Question whether neuro adjusted Sinemet. Will send for last consult note as it is not been received. 3. Chronic venous insufficiency: Legs appear stable. Will trial cutting back to using the Lasix every other day to see if she can do with less. She has trouble staying hydrated 4. Mild neurocognitive disorder: Stable on donepezil which she is tolerating well 5. Lightheadedness: Will adjust Lasix and encourage hydration as above. Suspect Parkinson's is also contributing to this issue 6. Flu shot given today 02/06/2025 Primary insomnia (ICD-10 - F51.01) 1. Prediabetes: We will update A1c which has been stable on diet control 2. Dizziness: Gave son number for cardiology to book follow-up and pacemaker check. This could conceivably also be in part related to the recent diagnosis of Parkinson's 3. Parkinson's: Newly on Sinemet. Will send for neurology notes and follow along closely 4. Mild neurocognitive disorder: Will restart Aricept and watch for any impact on dizziness 5. Insomnia: Will trial melatonin 08/13/2025 Lightheadedness (ICD-10 - R42) 1. Prediabetes: A1c was stable at 6.4 when last checked in January. We will recheck today with current nutrition efforts 2. Parkinson's: Question whether neuro adjusted Sinemet. Will send for last consult note as it is not been received. 3. Chronic venous insufficiency: Legs appear stable. Will trial cutting back to using the Lasix every other day to see if she can do with less. She has trouble staying hydrated 4. Mild neurocognitive disorder: Stable on donepezil which she is tolerating well 5. Lightheadedness: Will adjust Lasix and encourage hydration as above. Suspect Parkinson's is also contributing to this issue 6. Flu shot given today 08/13/2025 Encounter for administration of vaccine (ICD-10 - Z23) HD influenza administered patient counseled and VIS provided 1. Prediabetes: A1c was stable at 6.4 when last checked in January. We will recheck today with current nutrition efforts 2. Parkinson's: Question whether neuro adjusted Sinemet. Will send for last consult note as it is not been received. 3. Chronic venous insufficiency: Legs appear stable. Will trial cutting back to using the Lasix every other day to see if she can do with less. She has trouble staying hydrated 4. Mild neurocognitive disorder: Stable on donepezil which she is tolerating well 5. Lightheadedness: Will adjust Lasix and encourage hydration as above. Suspect Parkinson's is also contributing to this issue 6. Flu shot given today Plan Of Treatment Future Test Test Name Order Date CBC (COMPLETE BLOOD COUNT) 12/20/2023 COMPREHENSIVE METABOLIC PANEL 12/20/2023 Next Appt Details Provider Name:LOLA HAYNESFORD , 12/15/2025 01:00:00 PM, [address] [place], [address], Insurance Providers Payer Name Payer Address Payer Phone Subscriber Number Group Number Insured Name Patient Relationship to Insured Coverage Start Date Coverage End Date [employer] [address] [place] [address] [id number] SHERIE GONZALEZ Self - patient is the insured Medical (General) History Medical History History ICD Code Elevated lipids, Hypertension, Diabetes, Problems: Microscopic hematuria HCP: Lonnie Gonzalez son [phone] Surgical History Surgery Date(Month/Year) Disease : Bradycardia, Sx_Procedure : isai fernández partial hysterectomy
--- OUTSIDE RECORDS SUMMARY | 2025-11-10 15:44 | XMS_ITS ---
Author Name [facility] Organization Unknown History of Medication Use Medication Directions Dispensed Refills Start Date End Date Stat us lisinopril 10 mg tablet TAKE 1 TABLET BY ORAL ROUTE EVERY DAY active oxybutynin chloride ER 10 mg tablet,extended release 24 hr TAKE 1 TABLET BY MOUTH EVERY DAY active pravastatin 40 mg tablet TAKE 1 TABLET BY MOUTH EVERY DAY active Problems Problem Status Onset Date Problem Type Date of Resoluti on Source Arthritis of left knee active 2023-06-20 ProblemAct ENS_AONECT Encounters Encounter Type Encounter Reason Primary Diagnosis Location Date Ambulatory [facility] [place] 09/11/2023 Ambulatory [facility] [place] 08/07/2023 Ambulatory [facility] [place] 07/03/2023 Ambulatory [facility] [place] 07/03/2023 Ambulatory [facility] [place] 06/20/2023 Ambulatory [facility] [place] 06/20/2023 Ambulatory [facility] [place] 06/20/2023 Ambulatory [facility] [place] 06/19/2023 Ambulatory [facility] [place] 06/06/2023 Ambulatory [facility] [place] 06/06/2023 Ambulatory [facility] [place] 05/18/2023
--- OUTSIDE RECORDS SUMMARY | 2025-11-10 15:44 | XMS_ITS | Clinical Summary ---
Author Organization [address] [place] [address] Address [address] [place] [address] Phone Care Team Providers Care Eye Glass Frame Polisher Name Role Phone Lola Ma MD Primary Care Provider [phone] Allergies Active Allergy Reactions Criticality Noted Date Comments Iodinated Contrast Media 05/05/2022 Yellow Dye 03/09/2021 Medications lisinopriL (PRINIVIL,ZESTRIL) 10 mg tablet Take 10 mg by mouth daily. Active pravastatin (PRAVACHOL) 40 mg tablet Take 40 mg by mouth daily. Active carbidopa-levodopa (PARCOPA) 25-100 mg per disintegrating tablet Dissolve 1 tablet on top of the tongue 3 (three) times a day. Active Active Problems Problem Noted Date Diagnosed Date Dizziness 08/12/2025 Assessment & Plan (08/12/2025 9:31 AM EDT): The patient reports episodes of dizziness. It is likely multifactorial in etiology including dehydration, decreased p.o. food intake (as a product of the aging process), and likely a degree of autonomic dysfunction from her Parkinson's disease. We discussed ways of mitigating this including changing positions slowly, increasing her food and fluid intake through timed/scheduled eating and drinking opportunities. Her son suggests having a full glass of water when her medication box alerts her to take her pills. This is a great suggestion. I did advise avoidance of anticholinergic medications such as Benadryl which was previously listed on her med list. The patient son does not think that she is taking this regularly, but he will follow-up with her PCP kenorrow. As below, her pacemaker is already programmed in CLS mode to augment her heart rate if her blood pressure drops. Would allow her blood pressure to tend to little bit higher as strategy to mitigate postural hypotension. Memory loss 06/24/2024 Abnormal electrocardiogram 05/11/2023 Atypical chest pain 05/05/2022 Assessment & Plan (08/12/2025 9:26 AM EDT): The patient has not had any recurrent chest discomfort. Continue to follow. Essential hypertension 03/09/2021 Assessment & Plan (08/12/2025 9:27 AM EDT): Patient's blood pressure is somewhat robust in office today, but likely reasonable for her age and concurrent Parkinson's disease. Some of her dizziness is likely related to her heat dehydration, but also possibly the autonomic dysfunction that occurs with conditions that cause autonomic dysfunction. Would allow her blood pressure to be somewhat higher to counteract any postural dips. Thankfully, her pacemaker has CLS programmed on which helps to mitigate blood pressure changes through pacemaker mediated heart rate augmentation. Presence of permanent cardiac pacemaker 03/09/20 21 Sick sinus syndrome 03/09/2021 Overview (08/12/2025): Biotronik CLS dual-chamber pacemaker Assessment & Plan (08/12/2025 9:28 AM EDT): The patient's device is normally functioning. She is reliant on the atrial lead to start a heart 99% of the time, though she is only V paced 1% of the time. Continue in office and remote surveillance as per protocol Encounters Date Type Department Care Team Description 09/16/2025 3:30 PM EDT Ancillary Procedure [facility] Cardiology [facility] [address] [place] [address] 08/14/2025 4:35 PM EDT Ancillary Procedure [facility] Cardiology [facility] [address] [place] [address] 08/12/2025 8:40 AM EDT Office Visit [facility] Card[facility] [address] [place] [id number] Fernanda Prajapati NP Atypical chest pain (Primary Dx); Essential hypertension; Sick sinus syndrome (CMS/HCC V24, CMS/HCC V28); Dizziness 08/12/2025 Telephone [facility] [address] [facility] [address] [place] [phone] Fernanda Prajapati NP from Last 3 Months Social History Tobacco Use Types Packs/Day Years Used Date Smoking Tobacco: Never Smokeless Tobacco: Never Alcohol Use Standard Drinks/Week Comments Never 0 (1 standard drink = 0.6 oz pur e alcohol) Comments Unknown Sex and Gender Information Value Date Recorded Sex Assigned at Female 03/13/2025 3:53 PM EDT Legal Sex Female 9:36 PM EST Gender Identity Female 03/13/2025 3:53 PM EDT Sexual Orientation Straight 03/13/2025 3: 53 PM EDT Last Filed Vital Signs Vital Sign Reading Time Taken Comments Blood Pressure 138/98 08/12/2025 8:32 AM EDT Pulse 76 08/12/2025 8:32 AM EDT Temperature - - Respiratory Rate - - Oxygen Saturation 99% 08/12/2025 8:32 AM EDT Inhaled Oxygen Concentration - - Weight 59.1 kg (130 lb 3.2 oz) 08/12/2025 8:32 A M EDT Height 162.6 cm (5' 4 ) 08/12/2025 8:32 AM EDT Body Mass Index 22.35 08/12/2025 8:32 AM EDT Plan of Treatment Upcoming Encounters Date Type Department Care Team (Late st Contact Info) Description 03/17/2026 8:30 AM EDT Ancillary Procedure [facility] Cardiology [facility] [address] [facility] [address] [place] [phone] Health Maintenance Due Date Last Done Comments DTaP,Tdap,and Td Vaccines (1 - Tdap) 02/25/1960 Zoster Vaccines (1 of 2) 1991 RSV Immunization Adult Patients (1 - 1-dose 75+ series) 02/25/2016 Pneumococcal Vaccine: 50+ Years (2 of 2 - PCV20 or PCV21) 10/19/2021 10/19/2020 Cholesterol Screening (Lipid Panel) 11/04/2022 Falls Risk Assessment 11/04/2022 Medicare Annual Wellness Visit 11/04/2022 Social Influencers of Health Screening 11/04/2022 Hypertension/CHF/CAD Annual BMP Blood Test 11/05/2022 Depression Screening 11/26/2024 COVID-19 Vaccine (4 - 2024-2 6 season) 2025 09/12/2021, 01/24/2021, 01/03/2021 Influenza Vaccine (#1) 2025 , 08/25/2023 Osteoporosis Screening (Bone Density Screening) 07/25/2029 07/25/2019 HIB Vaccines Aged Out No longer eligi [...] age to complete this topic Meningococcal B Vaccine Aged Out No l onger eligible based on patient's age to complete this topic RSV Immunization Patients Under 20 months Aged Out No longer eligible b ased on patient's age to complete this topic Varicella Vaccines Aged Out No longer eligible based on patient's age to complete this topic Medical Devices Implanted Type Area Senior Qa Automation Engineer Device Identifier Shelf Expiration Date Model / Serial / Lot MaryjoGil Greene 8 Mandy [id number] Implanted:0306/2019 (Quantity not on file) Cardiac Pacemaker [employer] EDORA 8 MANDY / [id number] / Procedures Procedure Name Priority Date/Time Associated Diagnosis Comments CARDIAC DEVICE CHECK- REMOTE- MURJ Routine 09/16/2025 3:27 PM EDT CARDIAC DEVICE CHECK- REMOTE- MURJ Routine 08/14/2025 4:34 PM EDT ECG 12-LEAD Routine 08/12/2025 9:33 AM EDT Atypical chest pain RM DEXA AXIAL SKELETON Routine 07/25/2019 11:54 AM EDT Asymptomatic menopausal state from Last 3 Months or Most Recently Relevant to Health Maintenance Results * Cardiac device check - Remote- MURJ (09/16/2025 3:27 PM EDT) Only the most recent of2 resultswithin the time period is included. Date Time Interrogation Session [id number] CV DEVICE CHECK Type Interrogation Session RemoteScheduled CV DEVICE CHECK Implantable Pulse Generator Senior Qa Automation Engineer BIO CV DEVICE CHECK Implantable Pulse Generator Type IPG CV DEVICE CHECK Implantable Pulse Generator Model Edora 8 DR-T CV DEVICE CHECK Implantable Pulse Generator Serial Number [id number] CV DEVICE CHECK Implantable Pulse Generator Implant Date [id number] CV DEVICE CHECK Battery Remaining Percentage 45.00 CV DEVICE CHECK Battery Status Middle of Service CV DEVICE CHECK Ivan Statistic RA Percent Paced 99.00 CV DEVICE CHECK Ivan Statistic RV Percent Paced 1.00 CV DEVICE CHECK Atrial Tachy Statistic AT/AF [place] Percent 0.00 CV DEVICE CHECK Lead Channel Sensing Intrinsic Amplitude 1.100 CV DEVICE CHECK Lead Channel Impedance Value 527 CV DEVICE CHECK Lead Channel RA Pacing Threshold Date 2025-09-11 CV DEVICE CHECK Lead Channel Setting Pacing Amplitude 1.400 CV DEVICE CHECK Lead Channel Setting Pacing Pulse Width 0.4 CV DEVICE CHECK Lead Channel Sensing Intrinsic Amplitude 8.500 CV DEVICE CHECK Lead Channel Impedance Value 546 CV DEVICE CHECK Lead Channel Pacing Threshold Amplitude 0.700 CV DEVICE CHECK Lead Channel Pacing Threshold Pulse Width 0.4 CV DEVICE CHECK Lead Channel RV Pacing Threshold Date 2025-09-11 CV DEVICE CHECK Lead Channel Setting Pacing Amplitude 1.200 CV DEVICE CHECK Lead Channel Setting Pacing [...] 100 CV DEVICE CHECK Date of Service 2025-09-23 CV DEVICE CHECK Anatomical Region Laterality Modality Device Interroga tion 09/11/2025 12:1 7 AM EDT Impressions 09/16/2025 3:19 PM EDT Normal Remote: No Events * Normal Device Function * Alerts or events: None * Battery: Battery is at 45%, * Sensing, impedance and thresholds reviewed * Programmed parameters reviewed * Presenting rhythm reviewed * Heart Rate Histograms reviewed * No significant changes noted Narrative Procedure Note Eleno Cordova MD - 09/16/2025 IMPRESSION: Normal Remote: No Events * Normal Device Function * Alerts or events: None * Battery: Battery is at 45%, * Sensing, impedance and thresholds reviewed * Programmed parameters reviewed * Presenting rhythm reviewed * Heart Rate Histograms reviewed * No significant changes noted us Eleno Cordova MD CV IMPLANTABLE CARDIAC DEV ICE PROCEDURES Final Result * ECG 12 lead (08/12/2025 9:33 AM EDT) Ventricular Rate ECG 68 BPM GEMUSE Atrial Rate 68 BPM GEMUSE P-R Interval 392 ms GEMUSE QRS Duration 68 ms GEMUSE Q-T Interval 156 ms GEMUSE QTc 166 ms GEMUSE P Wave [place] 37 degrees GEMUSE R [place] -27 degrees GEMUSE T [place] 155 degrees GEMUSE ECG Interpretation AP-VS unchanged CANT R/O SEPTAL INFARCT NSSTTW CHANGES Confirmed by Chris ROB, RADHA ([id number]) on 08/19/2025 9:45:32 AM GEMUSE 08/12/2025 8:42 AM EDT 08/19/2025 9:45 AM EDT us Fernanda Prajapati NP ECG ORDERABLES Edited Result - Final GEMUSE * RM DEXA AXIAL SKELETON (07/25/2019 11:54 AM EDT) Anatomical Region Laterality Modality Mammography 07/25/2019 10:1 1 AM EDT Narrative 07/25/2019 11:54 AM EDT [facility] Diagnostic Imaging Department [address] [place] [address] Patient: SHERIE GONZALEZ /Age/Sex: 1940 - 79 - F Unit#: [id number] Location/Status: SPDIMAM/REG CLI Mnemonic/Ordering Site: MAMDEXAAX/SPMAM Ordering Physician: LOLA MA MD Rm Dexa Axial Skeleton - 07/25/19 - 1138 HISTORY: The patient is a 79-year-old postmenopausal female with clinical concern for metabolic bone disease. FINDINGS: Dual [...] 137% of that of age matched controls. This yields a T-score of 0.3 and a Z-score of 2.2 and there is therefore no evidence of osteoporosis or osteopenia here. IMPRESSION: 1. There is no evidence of osteoporosis or osteopenia. 2. FRAX analysis yields a 10-year probability of major osteoporotic fracture of 11.3% and a 10-year probability of hip fracture of 2.1%. Code 30052 Dictating Physician: PARTHA LOGAN MD Electronically Signed by: PARTHA LOGAN MD Dic Date/Time: 07/25/19 1152 Sign date/Time: 07/25/19 1154 Procedure Note Partha Logan Reji - 11/15/2022 [facility] Diagnostic Imaging Department [address] [place] [address] Patient: SHERIE GONZALEZ George Stephens./Age/Sex: 1940 - 79 - F Unit#: [id number] Location/Status: [facility] CLI Mnemonic/Ordering Site: [facility] Ordering Physician: LOLA MA MD [facility] Dexa Axial Skeleton - 07/25/19 1640 HISTORY: The patient is a 79-year-old postmenopausal [...] density of the femurs bilaterally is 1.044 gm/[id number] is 104% of that of young normals [...] probability of hip fracture of 2.1%. Code 32027 Dictating Physician: PARTHA LOGAN MD Electronically Signed by: PARTHA LOGAN MD Dic Date/Time: 07/25/19 1152 Sign date/Time: 07/25/19 1154 Lola Ma MD IMG BI PROCEDURES Final Result from Last 3 Months or Most Recently Relevant to Health Maintenance Insurance [employer] Care Teams Eye Glass Frame Polisher Relationship Specialty Start Date End Date Lola Ma MD [address] [place] [id number] PCP - General Internal Medicine 03/04/25
== END 2025-11-10 12:13 | disposition home or self-care (01) ==
LOC: HO.HSM 11:51
PROVIDERS: PCP Internal Medicine; Referring Provider Internal Medicine; Visit Provider Registered Nurse
DX: G20.A1 Parkinson's disease without dyskinesia, without mention of fluctuations (principal); G31.84 Mild cognitive impairment of uncertain or unknown etiology; R42 Dizziness and giddiness
CPT/HCPCS: 99214

== ENCOUNTER → 2025-11-10 11:51 | Outpatient (BNVA) | payer MEDICARE, SELFPAY | PROVIDERS: PCP Internal Medicine; Referring Provider Internal Medicine; Visit Provider Registered Nurse | DX: G20.A1 Parkinson's disease without dyskinesia, without mention of fluctuations (principal); G31.84 Mild cognitive impairment of uncertain or unknown etiology; R42 Dizziness and giddiness; Z79.899 Other long term (current) drug therapy | CPT/HCPCS: 99212 ==